=== PATIENT | female | born 1990 ===

== ENCOUNTER 2024-03-03 11:18 | Emergency (ER) | payer OTHER ==
[2024-03-03] MEDS ORDERED: MORPHINE SULFATE 4 MG/ML SYRINGE ONE (11:44)
[2024-03-03] MEDS ORDERED: HYDROmorphone 1 MG/ML 1 ML SYRINGE ONE (13:39)
--- NOTE | 2024-03-31 06:45 | XR ---
Patient: Ritika Barboza Ordering Physician: Unknown, Unknown ID: [id number] Phone, Pager: Lila ne: N/A Pager: N/A : 1990 Age/Gender: 33Y, F Primary Location: N/A Procedure: XR shoulder com plete LT Study Date: 03/03/2024 12:23:23 PM EXAMINATION TYPE: XR shoulder complete LT DATE OF EXAM: 03/03/2024 COMPARISON: NONE HISTORY: Pain TECHNIQUE: Shoulder examined in 3 projections. FINDINGS: The humeral head articulates with the glenoid. The acromio-clavicular junction is normal. No acute fractures or dislocations are evident. A follow up study can be performed 7-10 days from acute trauma for continued pain. MRI can be perfor med if soft tissue evaluation would be of benefit. IMPRESSION: 1. No acute osseous shoulder abnormality.
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
== END 2024-03-03 13:50 | disposition home or self-care (01) ==
LOC: EC 11:18
CPT/HCPCS: 96372; 99283

== ENCOUNTER 2024-03-16 14:38 | Emergency (ER) | payer OTHER ==
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
[2024-03-16] MEDS: oxyCODONE-APAP 10-325MG 1 EACH TAB PO STA (15:54)
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
[2024-03-16 16:52] VITALS: BP 112/72; PULSE 97; RESP 18; TEMP 98.4
== END 2024-03-16 16:52 | disposition home or self-care (01) ==
LOC: EC 14:38
DX: M79.602 Pain in left arm (principal)
CPT/HCPCS: 99283